=== PATIENT | female | born 1950 | race Caucasian/White ===

== ENCOUNTER 2020-09-23 05:25 | Day surgery (SDC) | payer MEDICARE, OTHER ==
[~2020-09-23] VITALS: Ht 168 cm; Wt 107.0 kg
[~2020-09-23 05:25] MED LIST: ASPIRIN325 MG PO; ATORVASTATIN CA80 MG PO; METOPROLOL SUCC25 MG PO; NAPROXEN500 MG PO; NORCO 5/3251 EACH PO; OMEPRAZOLE 20MG20 MG PO; VITAMIN D3250 MCG PO
--- NOTE | 2020-09-23 12:21 | NUR ---
MET WITH PT. SHE STATES THAT SHE WOULD NEED A ROLLING WALKER AND 11/04. SHE REQUESTED [facility] FOR PT/OT AND NURSING ASSESSMENT. ADVISED HER OF THE AFFILATION.
[2020-09-24 05:54] LABS: BASOPHIL 0.4 % (0-2); HCT 29.1 % (37.0-47.0); HGB 8.9 g/dl (12.5-16.0); LYMPHOCYTE 14.1 % (15-48); MCH 27.4 pg (25.0-31.0); MCHC 30.6 g/dL (32.0-36.0); MCV 89.5 fL (78.0-100.0); MONOCYTE 12.6 % (0-12); MPV 10.6 fL (6.0-9.5); NEUTROPHIL 71.5 % (41-80); NRBC 0; PLT 193 K/uL (150-400); RBC 3.25 M/uL (4.20-5.40); RDW 14.7 % (11.5-14.0); WBC 9.3 K/uL (4.0-10.5)
[2020-09-24 06:18] LABS: BUN/CREAT RATIO (CALC) 15.7 RATIO; CREATININE 0.83 mg/dL (0.51-0.95); POTASSIUM 3.8 mmol/L (3.5-5.1)
[2020-09-24] MEDS ORDERED: 3IN1 COMMODE XX (09:02)
[2020-09-24] MEDS ORDERED: ULTRA-LIGHT RO1 EACH XX (09:02)
[2020-09-24] MEDS ORDERED: OXYCODONE-ACET1 EAC1 PO (09:06)
[2020-09-24] MEDS ORDERED: XARELTO10 MG PO (09:06)
[2020-09-24] MEDS ORDERED: FEOSOL325 MG PO (09:06)
[2020-09-24] MEDS ORDERED: ZOFRAN4 M1 PO (09:06)
[2020-09-24] MEDS ORDERED: FEOSOL325 M1 PO (10:19)
--- NOTE | 2020-09-24 13:05 | NUR ---
PT. TO D/C HOME WITH SPOUSE. PT. ADVISED THAT XARELTO COPAY OF 172.00 IS TOO EXPENSIVE. ADVISED KHOI COYNE AND CHRISTIE RENDON. XARELTO CHANGED TO ASPIRIN. [facility] HAS DELIVERD A ROLLING WALKER AND 11/04.
--- NOTE | 2020-09-24 13:06 | NUR ---
PAIN MEDICATION 5/325 OXYCODINE/ACETAMINAPHINE WAS PREAUTHORIZAED DUE TO PT ALSO HAVING A SCRIPT FOR NORCO. KHOI COYNE SPOKE WITH MARIAMA AT [facility] AND EXPLAINED THAT THE NORCO HAD BEEN DISCONTINUED. AUTHORIZATION WAS GIVEN PER FAX. TC TO MIKHAIL, PHARMACIST AT [facility]. HE ADVISED THAT HE HAD RECEIVED CONFIRMATION OF THE AUTHORIZATION.
== END 2020-09-24 12:35 | disposition home health service (06) ==
LOC: FAS 05:25 → FMS 05:25 → FAS 07:00 → FMS 08:36 → FAS 09-24 12:35
PROVIDERS: Legal Medicine
DX: M17.11 Unilateral primary osteoarthritis, right knee (principal); M21.161 Varus deformity, not elsewhere classified, right knee; I10 Essential (primary) hypertension; I25.10 Atherosclerotic heart disease of native coronary artery without angina pectoris; I87.2 Venous insufficiency (chronic) (peripheral); G89.29 Other chronic pain; M54.5 Low back pain; R11.0 Nausea; E78.00 Pure hypercholesterolemia, unspecified; Z98.61 Coronary angioplasty status; Z87.891 Personal history of nicotine dependence; Z79.82 Long term (current) use of aspirin
CPT/HCPCS: 36415; 73560; 80048; 85025; 86850; 86900; 86901; 94010; 94760; 94762; 97110; 97162; 97166; 97530-GP; 97535; C1713; C1776; J0171; J0697; J1885; J2250; J2270; J2704; J2795; J3010; J7120